=== PATIENT | male | born 1990 | race Caucasian/White ===

== ENCOUNTER 2023-10-05 11:19 | Emergency (ER) | payer SELFPAY ==
[~2023-10-05] VITALS: Ht 167.6 cm; Wt 77.0 kg
[2023-10-05 11:46] VITALS: O2SAT 98
[2023-10-05] MEDS: TETANUS, DIPHTHERIA, PERTUSSIS VAC/PF 0.5ML (>10YR OLD) IM ONE (12:30)
[2023-10-05] MEDS: IBUPROFEN 600MG TABLET PO ONE (12:30)
[2023-10-05] MEDS ORDERED: IBUP-2029 MT (14:09)
[2023-10-05] MEDS ORDERED: AMOX1TAB16 MT (14:09)
[2023-10-05 15:06] VITALS: BP 100/75; PULSE 68; RESP 16; TEMP 98.2
== END 2023-10-05 15:07 | disposition home or self-care (01) ==
LOC: ER 11:19
DX: S61.452A Open bite of left hand, initial encounter (principal); W54.0XXA Bitten by dog, initial encounter; Y93.89 Activity, other specified; Y92.89 Other specified places as the place of occurrence of the external cause; Y99.8 Other external cause status
CPT/HCPCS: 73130; 90471; 90715; 99283